=== PATIENT | female | born 1960 | race Caucasian/White ===

== ENCOUNTER 2021-06-07 07:52 | Day surgery (SDC) | payer MEDICAID ==
[~2021-06-07] VITALS: Ht 175.3 cm; Wt 93.4 kg
[2021-06-07] MEDS ORDERED: MIDAZOLAM HCL 5 MG/5 ML VIAL ONE (08:42)
[2021-06-07] MEDS ORDERED: BUPIVACAINE /PF 0.25% 30 ML VIAL INJ ONE (08:43)
[2021-06-07] MEDS ORDERED: DIPHENHYDRAMINE INJ 50 MG/ML VIAL ONE (08:43)
[2021-06-07] MEDS ORDERED: methylPREDNISolone ACETATE 40 MG/ML ONE (08:43)
[2021-06-07] MEDS ORDERED: IOHEXOL 300 mgI/mL, 50 mL INFUS..BTL IV ONE (08:43)
[2021-06-07] MEDS ORDERED: LIDOCAINE 2%, 20 ML MDV ONE (08:43)
[2021-06-07 11:47] VITALS: BP_SYST 117
== END 2021-06-07 12:10 | disposition home or self-care (01) ==
LOC: SDS 07:52 → SMU 07:53 → SDS 12:10
PROVIDERS: ATTEND Internal Medicine
DX: M47.26 Other spondylosis with radiculopathy, lumbar region (principal); M51.16 Intervertebral disc disorders with radiculopathy, lumbar region; Z20.822 Contact with and (suspected) exposure to COVID-19; Z79.899 Other long term (current) drug therapy
CPT/HCPCS: 36415 ×2; 62323; 87426; 87635; J1030; J1200; J2001; J2250; J3490; Q9967; 76000

== ENCOUNTER 2022-05-09 09:18 | Day surgery (SDC) | payer MEDICAID ==
[~2022-05-09] VITALS: Ht 175.3 cm; Wt 91.6 kg
[~2022-05-09 09:18] MED LIST: ISOVUE-300 (IOPAMIDOL) 100 ML INFUS..BTL IV ONE; LIDOCAINE 2%, 20 ML MDV ONE; NORMAL SALINE 10 ML VIAL ONE; methylPREDNISolone ACETATE 40 MG/ML ONE
[2022-05-09] MEDS ORDERED: DIPHENHYDRAMINE INJ 50 MG/ML VIAL ONE (13:02)
[2022-05-09] MEDS: fentaNYL CITRATE/PF 100 MCG/2 ML AMP ONE ×2 (13:17→13:19)
[2022-05-09] MEDS: MIDAZOLAM HCL 5 MG/5 ML VIAL ONE ×2 (13:20→13:22)
[2022-05-09 16:37] VITALS: BP_SYST 125
== END 2022-05-09 15:42 | disposition home or self-care (01) ==
LOC: SDS 09:18 → SMU 09:43 → SDS 15:42
PROVIDERS: ATTEND Internal Medicine
DX: M51.16 Intervertebral disc disorders with radiculopathy, lumbar region (principal); Z20.822 Contact with and (suspected) exposure to COVID-19
CPT/HCPCS: 62323; 87426; 36415; J1200; J2001; J1030; J2250; J3010; Q9967; 76000

== ENCOUNTER 2023-04-10 09:16 | Day surgery (SDC) | payer MEDICAID ==
[~2023-04-10] VITALS: Ht 175.3 cm; Wt 92.5 kg
[~2023-04-10 09:16] MED LIST changes: +IOHEXOL 300 mgI/mL, 50 mL INFUS..BTL IV ONE; -ISOVUE-300 (IOPAMIDOL) 100 ML INFUS..BTL IV ONE
[2023-04-10] MEDS ORDERED: DIPHENHYDRAMINE INJ 50 MG/ML VIAL ONE (12:25)
[2023-04-10] MEDS: DIPHENHYDRAMINE INJ 50 MG/ML VIAL ONE (13:01)
[2023-04-10 13:09] VITALS: O2SAT 97
[2023-04-10] MEDS: MIDAZOLAM HCL 5 MG/5 ML VIAL ONE (13:33)
[2023-04-10] MEDS: fentaNYL CITRATE/PF 100 MCG/2 ML AMP ONE (13:36)
[2023-04-10 16:09] VITALS: BP_SYST 124; PULSE 69; RESP 16
== END 2023-04-10 14:20 | disposition home or self-care (01) ==
LOC: SDS 09:16 → SMU 09:16 → SDS 14:20
PROVIDERS: ATTEND Internal Medicine
DX: M47.26 Other spondylosis with radiculopathy, lumbar region (principal); M54.41 Lumbago with sciatica, right side; M79.10 Myalgia, unspecified site; M51.9 Unspecified thoracic, thoracolumbar and lumbosacral intervertebral disc disorder; F41.9 Anxiety disorder, unspecified; F32.A Depression, unspecified; J44.9 Chronic obstructive pulmonary disease, unspecified; E03.9 Hypothyroidism, unspecified; M81.0 Age-related osteoporosis without current pathological fracture; Z85.850 Personal history of malignant neoplasm of thyroid; Z79.899 Other long term (current) drug therapy
CPT/HCPCS: 62323; J1200; J1030; J2250; J3010; Q9967; 76000; J2001